=== PATIENT | female | born 1975 ===

== ENCOUNTER 2017-06-12 21:15 | Emergency (ER) | payer OTHER ==
[2017-06-12 21:18] VITALS: BMI 21.4
[2017-06-12 21:19] VITALS: BP 122/83; RESP 17; TEMP 97.3; O2SAT 99
[2017-06-12 21:22] VITALS: PULSE 79
[2017-06-12 21:56] LABS: URINE BILIRUBIN NEGATIVE (NEGATIVE); URINE BLOOD TRACE-INTACT (NEGATIVE); URINE GLUCOSE (UA) NEGATIVE (NEGATIVE); URINE KETONE NEGATIVE (NEGATIVE); URINE LEUKOCYTE ESTERASE TRACE Leu/uL (NEGATIVE); URINE PROTEIN NEGATIVE mg/dL (<30 mg/dL); URINE UROBILINOGEN 0.2 E.U./dL (<1 E.U./dL)
[2017-06-12 22:11] LABS: URINE APPEARANCE SLIGHT-CLOUDY (CLEAR); URINE COLOR YELLOW (YELLOW)
[2017-06-12 22:12] LABS: URINE BACTERIA OCC (NEG)
--- NOTE | 2017-06-12 23:04 | ED PDOC ---
Arrival/HPI - General Chief Complaint: Abdominal Pain Time Seen by Provider: 06/12/17 21:26 Historian: Patient - History of Present Illness Narrative History of Present Illness (Text): 06/12/17 23:04 A 41 year old female presents to the emergency department complaining of bladder pain for the past 2 days. Patient also notes some nausea and back pain. Patient denies any dysuria, vomiting, diarrhea, headache, dizziness, shortness of breath or any other complaints at this time. PMD: Dr. Hidalgo Time/Duration: Other (2 days) Symptom Onset: Sudden Symptom Course: Unchanged Activities at Onset: Rest Context: Home Past Medical History - Provider Review Nursing Documentation Reviewed: Yes - Cardiac Hx Cardiac Disorders: No - Pulmonary Hx Respiratory Disorders: No - Neurological Hx Neurological Disorder: No - HEENT Hx HEENT Disorder: No - Renal Hx Renal Disorder: No - Endocrine/Metabolic Hx Endocrine Disorders: No - Hematological/Oncological Hx Blood Disorders: No - Integumentary Hx Dermatological Disorder: No - Musculoskeletal/Rheumatological Hx Musculoskeletal Disorders: No - Gastrointestinal Hx Gastrointestinal Disorders: No - Genitourinary/Gynecological Hx Genitourinary Disorders: No - Psychiatric Hx Psychophysiologic Disorder: No Hx Substance Use: No - Anesthesia Hx Anesthesia: No Family/Social History - Physician Review Nursing Documentation Reviewed: Yes Family/Social History: No Known Family HX Smoking Status: Never Smoked Hx Alcohol Use: No Hx Substance Use: No Allergies/Home Meds Allergies/Adverse Reactions: Allergies No Known Allergies Allergy (Verified 06/12/17 21:18) Review of Systems - Physician Review All systems were reviewed & negative as marked: Yes - Review of Systems Respiratory: absent: SOB Gastrointestinal: Abdominal Pain, Nausea. absent: Diarrhea, Vomiting Genitourinary Female: absent: Dysuria Musculoskeletal: Back Pain Neurological: absent: Headache, Dizziness Physical Exam Vital Signs Reviewed: Yes Vital Signs Temp Pulse Resp BP Pulse Ox 06/12/17 21:19 97.3 F L 79 17 122/83 99 06/12/17 21:18 97.3 F L 80 17 122/83 99 Temperature: Afebrile Blood Pressure: Normal Pulse: Regular Respiratory Rate: Normal Appearance: Positive for: Well-Appearing, Non-Toxic, Comfortable Pain Distress: None Mental Status: Positive for: Alert and Oriented X 3 - Systems Exam Head: Present: Atraumatic, Normocephalic Pupils: Present: PERRL Extroacular Muscles: Present: EOMI Conjunctiva: Present: Normal Mouth: Present: Moist Mucous Membranes Neck: Present: Normal Range of Motion Respiratory/Chest: Present: Clear to Auscultation, Good Air Exchange. No: Respiratory Distress, Accessory Muscle Use Cardiovascular: Present: Regular Rate and Rhythm, Normal S1, S2. No: Murmurs Abdomen: Present: Tenderness, Normal Bowel Sounds. No: Distention, Peritoneal Signs Back: Present: Other (tenderness to palpation) Upper Extremity: Present: Normal Inspection. No: Cyanosis, Edema Lower Extremity: Present: Normal Inspection. No: Edema Neurological: Present: GCS=15, CN II-XII Intact, Speech Normal Skin: Present: Warm, Dry, Normal Color. No: Rashes Psychiatric: Present: Alert, Oriented x 3, Normal Insight, Normal Concentration Medical Decision Making ED Course and Treatment: 06/12/17 23:02 Impression: A 41 year old female with bladder pain, nausea and back pain. Plan: -- CT abd/pelvis -- Urinalysis -- labs -- Keflex, Toradol -- Reassess and disposition Progress Notes: CT Abdomen and Pelvis With Intravenous Contrast FINDINGS: Lower thorax: Minimal atelectasis. ABDOMEN: Liver: Unremarkable. No mass. Gallbladder and bile ducts: No calcified stones. No ductal dilation. Pancreas: No ductal dilation. No mass. Spleen: No splenomegaly. Adrenals: No mass. Kidneys and ureters: No mass. No hydronephrosis. Stomach and bowel: No definite mural thickening. No obstruction. Appendix: Normal caliber. No inflammation. PELVIS: Bladder: Unremarkable. Reproductive: 1.4 x 2.0 x 1.2 cm peripherally enhancing hypodensity with crenulated margins within LEFT ovary. ABDOMEN and PELVIS: Intraperitoneal space: Small free fluid within pelvis. No free air. Bones/joints: No acute fracture. Soft tissues: Unremarkable. Vasculature: Unremarkable. No aneurysm. Lymph nodes: No pathologically enlarged lymph nodes. IMPRESSION: 1. Involuting or ruptured LEFT ovarian follicle/cyst. 2. Incidental/non-acute findings are described above. Dictated and Authenticated by: Christ Gilman MD 06/13/2017 1:35 AM Eastern Time ([place] & [place]) will dc on po antibiotics 06/14/17 02:04 - Lab Interpretations Lab Results: 06/12/17 23:00 06/12/17 23:00 Lab Results 06/12/17 23:00: Sodium 139, Potassium 4.1, Chloride 106, Carbon Dioxide 24, Anion Gap 13, BUN 19, Creatinine 0.7, Est GFR ( Amer) > 60, Est GFR (Non- Af Amer) > 60, Random Glucose 95, Calcium 8.8, Total Bilirubin 0.3, AST 22, ALT 28, Alkaline Phosphatase 73, Total Protein 7.3, Albumin 4.0, Globulin 3.3, Albumin/Globulin Ratio 1.2 06/12/17 23:00: WBC 6.8, RBC 4.08, Hgb 11.5 L, Hct 34.1 L, MCV 83.6, MCH 28.2, MCHC 33.7, RDW 13.7, Plt Count 272, MPV 10.4, Gran % 56.6, Lymph % (Auto) 34.1, [place] % (Auto) 6.6 H, Eos % (Auto) 2.6, Baso % (Auto) 0.1, Gran # 3.85, Lymph # 2.3, [place] # 0.5, Eos # 0.2, Baso # 0.01 06/12/17 21:39: Urine Color Yellow, Urine Appearance Slight-cloudy, Urine pH 6.0 , Ur Specific [place] 1.020, Urine Protein Negative, Urine Glucose (UA) Negative , Urine Ketones Negative, Urine Blood Trace-intact H, Urine Nitrate Negative, Urine Bilirubin Negative, Urine Urobilinogen 0.2, Ur Leukocyte Esterase Trace H , Urine RBC 1 - 3, Urine WBC 1 - 3, Ur Epithelial Cells 1 - 3, Urine Bacteria Occ, Urine HCG, Qual Negative I have reviewed the lab results: Yes - RAD Interpretation Radiology Orders: 06/12/17 23:23 ABD & PELVIS IV CONTRAST ONLY [CT] Stat - Medication Orders Current Medication Orders: Discontinued Medications Cephalexin Monohydrate (Keflex) 500 mg PO STAT STA PRN Reason: Protocol Stop: 06/13/17 01:41 Last Admin: 06/13/17 01:53 Dose: 500 mg Ketorolac Tromethamine (Toradol) 30 mg IVP ONCE ONE Stop: 06/13/17 01:41 Last Admin: 06/13/17 01:53 Dose: 30 mg MAR Pain Assessment Document 06/13/17 01:53 SC (Rec: 06/13/17 01:53 SC [id number]) Pain Reassessment Is this a pain reassessment? No Sleep Is patient sleeping during reassessment? No Presence of Pain Presence of Pain Yes Pain Scale Used Pain Scale Used Numeric Description Intensity of Pain at present 6 IVP Administration Document 06/13/17 01:53 SC (Rec: 06/13/17 01:53 SC [id number]) Charges for Administration # of IVP Administrations 1 - Scribe Statement The provider has reviewed the documentation as recorded by the Robina Roblero Provider Scribe Attestation: All medical record entries made by the Scribe were at my direction and personally dictated by me. I have reviewed the chart and agree that the record accurately reflects my personal performance of the history, physical exam, medical decision making, and the department course for this patient. I have also personally directed, reviewed, and agree with the discharge instructions and disposition. Disposition/Present on Arrival - Present on Arrival Any Indicators Present on Arrival: No History of DVT/PE: No History of Uncontrolled Diabetes: No Urinary Catheter: No History of Decub. Ulcer: No History Surgical Site Infection Following: None - Disposition Have Diagnosis and Disposition been Completed?: Yes Diagnosis: Ovarian cyst Disposition: HOME/ ROUTINE Disposition Time: 01:50 Condition: GOOD Discharge Instructions (ExitCare): Ovarian Cyst (ED) Print Language: SLOVENIAN Prescriptions: Cephalexin [Keflex] 500 mg PO BID #14 capsule Referrals: Lakia Hidalgo MD [Primary Care Provider] - Follow up with primary Forms: PopUp (Irish)
[2017-06-12 23:10] LABS: BASO # 0.01 K/mm3 (0.0-2.0); BASO % 0.1 % (0.0-3.0); EOS # 0.2 (0.0-0.7); EOS % 2.6 % (1.5-5.0); GRAN # 3.85 (1.4-6.5); GRAN % 56.6 % (50.0-68.0); HEMATOCRIT 34.1 % (36.0-48.0); LYMPH # 2.3 (1.2-3.4); LYMPH % 34.1 % (22.0-35.0); MEAN CELL VOLUME 83.6 fl (80.0-105.0); MEAN CORPUSCULAR HEMOGLOBIN 28.2 pg (25.0-35.0); MEAN CORPUSCULAR HGB CONC 33.7 g/dl (31.0-37.0); MEAN PLATELET VOLUME 10.4 fl (7.0-11.0); MONO # 0.5 (0.1-0.6); MONO % 6.6 % (1.0-6.0); RED CELL DISTRIBUTION WIDTH 13.7 % (11.5-14.5); WHITE BLOOD COUNT 6.8 10^3/ul (4.5-11.0)
[2017-06-12 23:16] LABS: ALB/GLOB RATIO 1.2 (1.1-1.8); ALKALINE PHOSPHATASE 73 U/L (38-126); ALT/SGPT 28 U/L (7-56); AST/SGOT 22 U/L (14-36); BILIRUBIN,TOTAL 0.3 mg/dL (0.2-1.3); BLOOD UREA NITROGEN 19 mg/dL (7-21); CALCIUM 8.8 mg/dL (8.4-10.5); CARBON DIOXIDE 24 mmol/L (21-33); CHLORIDE 106 mmol/L (98-107); GFR AFRICAN-AMERICAN > 60; GLUCOSE,RANDOM 95 mg/dL (70-110); POTASSIUM 4.1 mmol/L (3.6-5.0); SODIUM 139 mmol/L (132-148); TOTAL PROTEIN 7.3 g/dL (5.8-8.3)
[2017-06-13] MEDS ORDERED: Iohexol 350 MG/100 ML VIAL ONE (00:09)
--- NOTE | 2017-06-13 01:35 | CT ---
EXAM: CT Abdomen and Pelvis With Intravenous Contrast CLINICAL HISTORY: 41 years old, female; Pain; Abdominal pain; Generalized; Additional info: Lower abd pain TECHNIQUE: Axial computed tomography images of the abdomen and pelvis with intravenous contrast. All CT scans at this facility use one or more dose reduction techniques, viz.: automated exposure control; ma/kV adjustment per patient size (including targeted exams where dose is matched to indication; i.e. head); or iterative reconstruction technique. Coronal and sagittal reformatted images were created and reviewed. CONTRAST: 95 mL of omni 350 administered intravenously. COMPARISON: No relevant prior studies available. FINDINGS: Lower thorax: Minimal atelectasis. ABDOMEN: Liver: Unremarkable. No mass. Gallbladder and bile ducts: No calcified stones. No ductal dilation. Pancreas: No ductal dilation. No mass. Spleen: No splenomegaly. Adrenals: No mass. Kidneys and ureters: No mass. No hydronephrosis. Stomach and bowel: No definite mural thickening. No obstruction. Appendix: Normal caliber. No inflammation. PELVIS: Bladder: Unremarkable. Reproductive: 1.4 x 2.0 x 1.2 cm peripherally enhancing hypodensity with crenulated margins within LEFT ovary. ABDOMEN and PELVIS: Intraperitoneal space: Small free fluid within pelvis. No free air. Bones/joints: No acute fracture. Soft tissues: Unremarkable. Vasculature: Unremarkable. No aneurysm. Lymph nodes: No pathologically enlarged lymph nodes. IMPRESSION: 1. Involuting or ruptured LEFT ovarian follicle/cyst. 2. Incidental/non-acute findings are described above.
== END 2017-06-13 01:58 | disposition home or self-care (01) ==
LOC: ED 21:15
DX: N83.202 Unspecified ovarian cyst, left side (principal)
CPT/HCPCS: 74177; 80053; 81001; 84703; 85025; 87086; 96374; 99283; J1885; Q9967

== ENCOUNTER 2017-06-28 15:12 | Emergency (ER) | payer OTHER ==
[2017-06-28 15:12] VITALS: BMI 21.4
--- NOTE | 2017-06-28 15:17 | ED PDOC ---
Arrival/HPI - General Time Seen by Provider: 06/28/17 15:13 Historian: Patient - History of Present Illness Narrative History of Present Illness (Text): 06/28/17 15:16 41 year old female, pmh including UTI, nkda, here complaining of epigastric pain and nausea x 2 days. Pt. stated that she received the urine culture result , never had the follow up for the UTI as it's sensitive to the cephalosporin. Pt. stated that she has been having epigastric pain, feels nausea and causing her to have headache, no change in vision, no dizziness, no numbness or tingling , no palpitation, no rash, no vaginal bleeding or flank pain, no palpitation, no other medical or psychological complaints. Past Medical History - Provider Review Nursing Documentation Reviewed: Yes - Cardiac Hx Cardiac Disorders: No - Pulmonary Hx Respiratory Disorders: No - Neurological Hx Neurological Disorder: No - HEENT Hx HEENT Disorder: No - Renal Hx Renal Disorder: No - Endocrine/Metabolic Hx Endocrine Disorders: No - Hematological/Oncological Hx Blood Disorders: No - Integumentary Hx Dermatological Disorder: No - Musculoskeletal/Rheumatological Hx Musculoskeletal Disorders: No - Gastrointestinal Hx Gastrointestinal Disorders: No - Genitourinary/Gynecological Hx Genitourinary Disorders: No - Psychiatric Hx Psychophysiologic Disorder: No Hx Substance Use: No - Anesthesia Hx Anesthesia: No Family/Social History - Physician Review Nursing Documentation Reviewed: Yes Family/Social History: Unknown Family HX Smoking Status: Never Smoked Hx Alcohol Use: No Hx Substance Use: No Allergies/Home Meds Allergies/Adverse Reactions: Allergies No Known Allergies Allergy (Verified 06/12/17 21:18) Review of Systems - Review of Systems Constitutional: absent: Fatigue, Fevers Eyes: absent: Vision Changes ENT: absent: Hearing Changes Respiratory: absent: SOB, Cough Cardiovascular: absent: Chest Pain Gastrointestinal: Abdominal Pain, Nausea, Vomiting. absent: Diarrhea Genitourinary Female: absent: Dysuria Musculoskeletal: absent: Arthralgias Skin: absent: Rash, Pruritis Neurological: Headache. absent: Dizziness, Focal Weakness, Gait Changes, Speech Changes Physical Exam Vital Signs Reviewed: Yes Vital Signs Temp Pulse Resp BP Pulse Ox 06/28/17 16:26 80 16 104/70 98 06/28/17 15:28 97.8 F 84 18 101/65 99 Temperature: Afebrile Blood Pressure: Normal Pulse: Regular Respiratory Rate: Normal Appearance: Positive for: Well-Appearing, Non-Toxic, Comfortable Pain Distress: Moderate Mental Status: Positive for: Alert and Oriented X 3 - Systems Exam Head: Present: Atraumatic, Normocephalic Pupils: Present: PERRL Extroacular Muscles: Present: EOMI Conjunctiva: Present: Normal Mouth: Present: Moist Mucous Membranes Neck: Present: Normal Range of Motion Respiratory/Chest: Present: Clear to Auscultation, Good Air Exchange. No: Respiratory Distress, Accessory Muscle Use Cardiovascular: Present: Regular Rate and Rhythm, Normal S1, S2. No: Murmurs Abdomen: Present: Tenderness (mild epigastric and suprapubic tenderness. ), Normal Bowel Sounds. No: Distention, Peritoneal Signs, Rebound, Guarding Back: Present: Normal Inspection. No: CVA Tenderness Upper Extremity: Present: Normal Inspection. No: Cyanosis, Edema Lower Extremity: Present: Normal Inspection. No: Edema Neurological: Present: GCS=15, Speech Normal, Motor Func Grossly Intact, Gait Normal, Memory Normal Skin: Present: Warm, Dry, Normal Color. No: Rashes Psychiatric: Present: Alert, Oriented x 3, Normal Insight, Normal Concentration Medical Decision Making ED Course and Treatment: 06/28/17 15:48 -labs/ua -IVF/toradol/pepcid/reglan -observe and reassess 06/28/17 16:48 -Urine hcg negative -Urinalysis show no UTI. Pt. has no urinary symptoms or complaints. -Labs are non-significant with no elevation of wbc and normal bun/creatine. -Pt. feels completely relief, no further emergent intervention indicated at this time. -[facility], follow up with your own pmd and GI/neurologist within 2 days, return to the Emergency room for any new or worsening signs or symptoms. - Lab Interpretations Lab Results: 06/28/17 15:45 06/28/17 15:45 Lab Results 06/28/17 15:45: Sodium 140, Potassium 4.0, Chloride 100, Carbon Dioxide 28, Anion Gap 16, BUN 12, Creatinine 0.7, Est GFR ( Amer) > 60, Est GFR (Non- Af Amer) > 60, Random Glucose 89, Calcium 9.4, Total Bilirubin 0.6, AST 28, ALT 34, Alkaline Phosphatase 87, Total Protein 8.3, Albumin 4.5, Globulin 3.8, Albumin/Globulin Ratio 1.2, Lipase 93 06/28/17 15:45: Urine Color Yellow, Urine Appearance Clear, Urine pH 6.0, Ur Specific [place] 1.010, Urine Protein Negative, Urine Glucose (UA) Negative, Urine Ketones Negative, Urine Blood Negative, Urine Nitrate Negative, Urine Bilirubin Negative, Urine Urobilinogen 0.2, Ur Leukocyte Esterase Negative 06/28/17 15:45: WBC 3.9 L D, RBC 4.81, Hgb 13.7 D, Hct 40.2, MCV 83.6, MCH 28.5 , MCHC 34.1, RDW 13.6, Plt Count 287, MPV 10.7, Gran % 55.4, Lymph % (Auto) 35.0 , [place] % (Auto) 7.0 H, Eos % (Auto) 2.3, Baso % (Auto) 0.3, Gran # 2.14, Lymph # 1.4, [place] # 0.3, Eos # 0.1, Baso # 0.01 I have reviewed the lab results: Yes Interpretation: No clinic. lab abnormalty - Medication Orders Current Medication Orders: Sodium Chloride (Sodium Chloride 0.9%) 1,000 mls @ 999 mls/hr IV .Q1H1M STA Stop: 06/28/17 16:38 Last Admin: 06/28/17 15:40 Dose: 999 mls/hr eMAR Start Stop Document 06/28/17 15:40 AD (Rec: 06/28/17 16:20 [facility] Intravenous Solution Start Date 06/28/17 Start Time 15:40 Discontinued Medications Famotidine (Pepcid) 20 mg PO STAT STA Stop: 06/28/17 15:44 Last Admin: 06/28/17 15:40 Dose: 20 mg Ketorolac Tromethamine (Toradol) 30 mg IVP STAT STA Stop: 06/28/17 15:44 Last Admin: 06/28/17 15:40 Dose: 30 mg MAR Pain Assessment Document 06/28/17 15:40 AD (Rec: 06/28/17 16:21 [email or web address] Pain Reassessment Is this a pain reassessment? No Presence of Pain Presence of Pain Yes Pain Scale Used Pain Scale Used Numeric Description Intensity of Pain at present 8 IVP Administration Document 06/28/17 15:40 AD (Rec: 06/28/17 16:21 [email or web address] Charges for Administration # of IVP Administrations 1 Metoclopramide HCl (Reglan) 10 mg IVP STAT STA Stop: 06/28/17 15:44 Last Admin: 06/28/17 15:40 Dose: 10 mg IVP Administration Document 06/28/17 15:40 AD (Rec: 06/28/17 16:21 AD [email or web address] Charges for Administration # of IVP Administrations 1 - PA / [employer] / Resident Statement MD/DO has reviewed & agrees with the documentation as recorded. Disposition/Present on Arrival - Present on Arrival Any Indicators Present on Arrival: No History of DVT/PE: No History of Uncontrolled Diabetes: No Urinary Catheter: No History of Decub. Ulcer: No History Surgical Site Infection Following: None - Disposition Have Diagnosis and Disposition been Completed?: Yes Diagnosis: Gastritis, Headache Disposition: HOME/ ROUTINE Disposition Time: 16:49 Patient Plan: Discharge Condition: IMPROVED Additional Instructions: -Discharge home with prilosec, follow up with your own pmd and GI/neurologist within 2 days, return to the Emergency room for any new or worsening signs or symptoms. Prescriptions: Acetaminophen 2 tab PO QID PRN #30 tab PRN Reason: Other Omeprazole Magnesium [Prilosec Otc] 20 mg PO DAILY #14 tcp Referrals: [facility] [place]] - Follow up with primary David aDwkins MD [Staff Provider] - Follow up with primary Jeremy Estrada MD [Staff Provider] - Follow up with primary Forms: WORK NOTE
[2017-06-28 15:34] VITALS: TEMP 97.8
[2017-06-28] MEDS ORDERED: Sodium Chloride 0.9% 1,000 ML IV STA (15:38)
[2017-06-28 16:22] LABS: BASO # 0.01 K/mm3 (0.0-2.0); BASO % 0.3 % (0.0-3.0); EOS # 0.1 (0.0-0.7); EOS % 2.3 % (1.5-5.0); GRAN # 2.14 (1.4-6.5); GRAN % 55.4 % (50.0-68.0); HEMATOCRIT 40.2 % (36.0-48.0); LYMPH # 1.4 (1.2-3.4); MEAN CELL VOLUME 83.6 fl (80.0-105.0); MEAN CORPUSCULAR HEMOGLOBIN 28.5 pg (25.0-35.0); MEAN CORPUSCULAR HGB CONC 34.1 g/dl (31.0-37.0); MEAN PLATELET VOLUME 10.7 fl (7.0-11.0); MONO # 0.3 (0.1-0.6); RED CELL DISTRIBUTION WIDTH 13.6 % (11.5-14.5); WHITE BLOOD COUNT 3.9 10^3/ul (4.5-11.0)
[2017-06-28 16:24] LABS: URINE APPEARANCE CLEAR (CLEAR); URINE BILIRUBIN NEGATIVE (NEGATIVE); URINE BLOOD NEGATIVE (NEGATIVE); URINE COLOR YELLOW (YELLOW); URINE GLUCOSE (UA) NEGATIVE (NEGATIVE); URINE KETONE NEGATIVE (NEGATIVE); URINE LEUKOCYTE ESTERASE NEGATIVE Leu/uL (NEGATIVE); URINE PROTEIN NEGATIVE mg/dL (<30 mg/dL); URINE UROBILINOGEN 0.2 E.U./dL (<1 E.U./dL)
[2017-06-28 16:26] VITALS: BP 104/70; PULSE 80; RESP 16; O2SAT 98
[2017-06-28 16:38] LABS: ALB/GLOB RATIO 1.2 (1.1-1.8); ALKALINE PHOSPHATASE 87 U/L (38-126); ALT/SGPT 34 U/L (7-56); AST/SGOT 28 U/L (14-36); BILIRUBIN,TOTAL 0.6 mg/dL (0.2-1.3); BLOOD UREA NITROGEN 12 mg/dL (7-21); CALCIUM 9.4 mg/dL (8.4-10.5); CARBON DIOXIDE 28 mmol/L (21-33); CHLORIDE 100 mmol/L (98-107); GFR AFRICAN-AMERICAN > 60; GLUCOSE,RANDOM 89 mg/dL (70-110); LIPASE 93 U/L (23-300); SODIUM 140 mmol/L (132-148); TOTAL PROTEIN 8.3 g/dL (5.8-8.3)
== END 2017-06-28 17:15 | disposition home or self-care (01) ==
LOC: ED 15:12
DX: K29.70 Gastritis, unspecified, without bleeding (principal); N39.0 Urinary tract infection, site not specified
CPT/HCPCS: 80053; 81003; 83690; 85025; 96374; 96375; 99284; J1885; J2765; J7040